=== PATIENT | male | born 1995 | race Hispanic/Latino ===

== ENCOUNTER 2018-01-04 03:19 | Emergency (ER) | payer SELFPAY ==
[2018-01-04 03:38] VITALS: TEMP 98.7
[2018-01-04] MEDS ORDERED: Tdap Vaccine 0.5 ml Vial (10-64 yrs) IM ONE ×2 (03:39→04:10)
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
[2018-01-04 05:08] VITALS: BP 137/82; PULSE 105; RESP 17
[2018-01-04 05:47] VITALS: O2SAT 98
== END 2018-01-04 04:43 | disposition home or self-care (01) ==
LOC: H.ER 03:19
DX: S01.511A Laceration without foreign body of lip, initial encounter (principal); S09.90XA Unspecified injury of head, initial encounter; Z23 Encounter for immunization